=== PATIENT | male | born 1985 | race American Indian/Alaskan Native ===

== ENCOUNTER 2016-09-07 18:31 | Emergency (ER) | payer SELFPAY ==
[2016-09-07] MEDS ORDERED: TYLENOL ONE (19:22)
[2016-09-07] MEDS ORDERED: TYLENOL PO ONE (19:28)
--- NOTE | 2016-09-07 20:07 | XRay Report ---
FINAL REPORT EXAM: XR FINGER(S) 2 LT HISTORY: 3RD DIGIT pain, LEFT HAND send for report COMPARISONS: None. FINDINGS: Three views left hand/middle finger Soft tissue swelling at the distal aspect of the left middle finger. No radiodense foreign body, bone lesion, periosteal reaction, or fracture. No deformity or gross malalignment. IMPRESSION: Soft tissue swelling in the distal left 3rd finger without other acute finding.
--- NOTE | 2016-09-07 22:20 | Emergency Department Report ---
Upper Extremity - HPI Chief Complaint: Extremity Injury, Upper Stated Complaint: LT HAND MIDDLE FINGER BROKEN Time Seen by Provider: 09/07/16 21:48 Upper Extremity: Left Middle Finger (left distal middle finger pain at fingertip ) Occurred When: Today Mechanism: Crush Severity: mild Symptoms: Yes Pain with Movement, Yes Swelling, No Deformity, No Limited Range of Movement, No Numbness, No Weakness, No Bruising/Ecchymosis, No Laceration or Abrasion Other History: 30-year-old male past medical history HIV presents with complaint of left distal middle fingertip pain status post accidentally closing car door on distal fingertip. Patient was exiting his car closing door and briefly shut door on distal fingertip on Saturday. Patient complaining of persistent pain and left distal fingertip. No visible lacerations nail bed appears fully intact. Denies sustaining any other injuries. ED Review of Systems ROS: Stated complaint: LT HAND MIDDLE FINGER BROKEN Other details as noted in HPI Constitutional: denies: chills, fever Eyes: denies: eye pain, eye discharge, vision change ENT: denies: ear pain, throat pain Respiratory: denies: cough, shortness of breath, wheezing Cardiovascular: denies: chest pain, palpitations Endocrine: no symptoms reported Gastrointestinal: denies: abdominal pain, nausea, diarrhea Genitourinary: denies: urgency, dysuria Musculoskeletal: denies: back pain, joint swelling, arthralgia Skin: denies: rash, lesions Neurological: denies: headache, weakness, paresthesias Psychiatric: denies: anxiety, depression Hematological/Lymphatic: denies: easy bleeding, easy bruising ED Past Medical Hx - Past Medical History Previous Medical History?: Yes Hx Sickle Cell Disease: Yes (sickle cell trait) Hx HIV: Yes Additional medical history: anemia - Surgical History Past Surgical History?: Yes Additional Surgical History: inguinal hernia repair - Social History Smoking Status: Never Smoker Substance Use Type: None - Medications Home Medications: Home Medications Medication Instructions Recorded Confirmed Last Taken Type Abacavir/Dolutegravir/Lamivudi 1 each PO DAILY 09/07/16 09/07/16 1 Day Ago History [Triumeq Tablet] Ferrous Sulfate [Feosol] 325 mg PO QDAY 09/07/16 09/07/16 09/07/16 History Naproxen [Naprosyn TAB] 500 mg PO BID PRN #20 tablet 09/07/16 Unknown Rx Upper Extremity Exam - Exam General: Vital signs noted. No distress. Alert and acting appropriately. Head and Torso: No HEENT Abnormality, No Neck Tenderness, No Chest/Lungs Abnormality, No Abdominal Tenderness, No Back Tenderness Shoulder Exam: Yes Normal Range of Motion in Shoulder, No Shoulder Tenderness, No Clavicle Tenderness, No Shoulder Deformity, No AC Joint Tenderness Arm Exam: No Arm/Humerus Tenderness, No Arm Deformity Elbow: No Elbow Tenderness, No Normal Range of Motion in Elbow, No Elbow Deformity Forearm: No Forearm Tenderness, No Forearm Deformity, No Pain with Pronation, No Pain with Supination Wrist: Yes Normal ROM in Wrist, No Wrist Tenderness, No Wrist Deformity, No Snuffbox Tenderness, No Pain with Axial Thumb Compression Hand: Yes Digit Tenderness (mild tenderness at the IP joint left distal middle finger. No other finger injuries range of motion at MCP DIP PIP fully intact against resistance. Distal capillary refill less than 1 second), Yes Normal ROM in Digit(s), No Hand Tenderness, No Hand Deformity, No Digit(s) Deformity, No Tendon Dysfunction CMS Exam: Yes Normal Distal Pulses, Yes Normal Capillary Refill, Yes Normal Distal Sensation, No Broken Skin Hand L/R Front: 1 - Mild pain on palpation here no abscess no signs of infection ED Course Vital Signs 09/07/16 19:28 Temperature 98.3 F Pulse Rate 88 Respiratory 16 Rate Blood Pressure 128/80 [Right] O2 Sat by Pulse 98 Oximetry ED Medical Decision Making - Medical Decision Making A/P: Finger contusion 1-x-ray shows no fracture, no signs of infection, finger range of motion fully intact capillary refill fully intact 2-naproxen when necessary, [place] taping, our [facility] Critical care attestation.: If time is entered above; I have spent that time in minutes in the direct care of this critically ill patient, excluding procedure time. ED Disposition Clinical Impression: Fingertip contusion Qualifiers: Encounter type: initial encounter Qualified Code(s): S60.00XA - Contusion of unspecified finger without damage to nail, initial encounter Disposition: DISCHARGED TO HOME OR SELFCARE Is pt being admited?: No Does the pt Need Aspirin: No Condition: Stable Instructions: Contusion in Adults (ED), RICE Therapy (ED) Prescriptions: Naproxen [Naprosyn TAB] 500 mg PO BID PRN #20 tablet PRN Reason: Pain Referrals: PRIMARY CARE,MD [Primary Care Provider] - 3-5 Days Forms: Work/School Release Form(ED) Time of Disposition: 22:19
[2016-09-07 22:30] VITALS: BP 124/78
== END 2016-09-07 22:29 | disposition home or self-care (01) ==
LOC: ED 18:31
DX: S60.032A Contusion of left middle finger without damage to nail, initial encounter (principal); W22.8XXA Striking against or struck by other objects, initial encounter; Y93.9 Activity, unspecified; Y92.9 Unspecified place or not applicable; Y99.9 Unspecified external cause status
CPT/HCPCS: 99283